=== PATIENT | female | born 1995 | race Two or more races ===

== ENCOUNTER 2019-02-23 11:20 | Emergency (ER) | payer OTHER ==
[~2019-02-23] VITALS: Ht 162.6 cm; Wt 69.9 kg
[2019-02-23 11:28] VITALS: Ht 162.6 cm; Wt 69.9 kg
[2019-02-23 13:48] VITALS: BP 115/75
== END 2019-02-23 13:48 | disposition home or self-care (01) ==
LOC: ED 11:20
DX: S80.262A Insect bite (nonvenomous), left knee, initial encounter (principal); W57.XXXA Bitten or stung by nonvenomous insect and other nonvenomous arthropods, initial encounter; Y93.89 Activity, other specified; Y92.89 Other specified places as the place of occurrence of the external cause; Y99.8 Other external cause status
CPT/HCPCS: J7512